=== PATIENT | female | born 1980 | race Caucasian/White ===

== ENCOUNTER 2018-06-08 20:20 | Emergency (ER) | payer BC ==
--- NOTE | 2018-06-08 21:17 | EDPHY ---
H & P Time Seen by Provider: 06/08/18 21:16 HPI/ROS: CHIEF COMPLAINT: Finger laceration HISTORY OF PRESENT ILLNESS: 38-year-old female here with laceration to the tip of the left 2nd digit. She states she slipped while getting vegetables this evening and cut her finger. Tetanus is up-to-date. She takes no blood thinners. She denies any numbness or loss of range of motion. She is taking no medication to alleviate her pain. There is no drugs or alcohol involved. REVIEW OF SYSTEMS: Constitutional: No fever, no chills. Eyes: No discharge. ENT: No sore throat. Cardiovascular: No chest pain, no palpitations. Respiratory: No cough, no shortness of breath. Gastrointestinal: No abdominal pain, no vomiting. Genitourinary: No hematuria. Musculoskeletal: No back pain. Skin: No rashes. Neurological: No headache. Smoking Status: Never smoked Physical Exam: General Appearance: Alert and no distress. Eyes: Pupils equal and round no injection. Respiratory: Chest is nontender, lungs are clear to auscultation. Cardiac: regular rate and rhythm. Gastrointestinal: Abdomen is soft and nontender, no masses, bowel sounds normal. Musculoskeletal: Neck is supple and nontender. Extremities have full range of motion and are nontender. Skin: No rashes. 1 cm curved laceration to the tip of the left 2nd digit. No joint or tendon involvement. Approximately 0.5 cm involvement of the tip of the fingernail. No subungual hematoma. Constitutional: Initial Vital Signs Temperature (C) 37.0 C 06/08/18 20:22 Heart Rate 65 06/08/18 20:22 Respiratory Rate 18 06/08/18 20:22 Blood Pressure 118/81 H 06/08/18 20:22 O2 Sat (%) 97 06/08/18 20:22 O2 Delivery Mode Room Air Allergies/Adverse Reactions: No Known Allergies Allergy (Unverified 06/08/18 20:24) Home Medications: Medication Instructions Recorded NK [No Known Home Meds] 06/08/18 Medical Decision Making Procedures: Procedure: Laceration repair. Verbal consent was obtained from the patient. The 1 cm laceration on the left finger was anesthetized in the usual fashion. The wound was irrigated, draped and explored to its baser. There were no deep structures involved. No tendon injury was identified. The wound was repaired with 5-0 nylon. The wound repair was made with 4 simple interrupted sutures. The wound is well approximated.. The procedure was performed by myself. Differential Diagnosis: Tendon injury, neurovascular injury, nail bed injury, joint capsule injury Departure - Departure Disposition: Home, Routine, Self-Care Clinical Impression: Finger laceration Condition: Good Instructions: Care For Your Stitches (ED), Laceration (ED) Additional Instructions: Follow-up in 7 days for suture removal Referrals: NONE *PRIMARY CARE P,. [Primary Care Provider] - As per Instructions [facility],. [Clinic] - As per Instructions
[2018-06-08 21:32] VITALS: BP 118/69
== END 2018-06-08 21:32 | disposition home or self-care (01) ==
PROC: 0HQGXZZ Repair Left Hand Skin, External Approach (ICD-10-PCS; principal; 2018-06-08)
DX: S61.211A Laceration without foreign body of left index finger without damage to nail, initial encounter (principal); W26.0XXA Contact with knife, initial encounter; Y93.G3 Activity, cooking and baking; Y92.9 Unspecified place or not applicable